=== PATIENT | female | born 2000 ===

== ENCOUNTER 2023-02-12 14:52 | Outpatient (CLI) | payer OTHER | END 2023-02-12 14:53 | disposition home or self-care (01) | LOC: LAB 14:52 | PROVIDERS: ATTEND Internal Medicine Hematology & Oncology | DX: E70.331 Hermansky-Pudlak syndrome (principal); D68.8 Other specified coagulation defects ==

== ENCOUNTER 2023-06-02 17:53 | Inpatient (IN) | payer OTHER ==
[~2023-06-02] VITALS: Ht 157.5 cm; Wt 70.8 kg
[2023-06-02 18:22] LABS: HEMATOCRIT 32.4 % (36.0-45.00); HEMOGLOBIN 10.4 g/dL (12.0-15.00); MEAN CELL VOLUME 84.5 fL (80.00-100.00); MEAN CORPUSCULAR HEMOGLOBIN 27.2 pg (27.00-32.0); MEAN CORPUSCULAR HGB CONC 32.2 g/dl (32.0-36.0); PLATELET COUNT 342 K/uL (150-450); RED BLOOD COUNT 3.83 M/uL (4.00-6.00); RED CELL DISTRIBUTION WIDTH 13.4 % (11.5-14.5)
[2023-06-02 18:37] LABS: PARTIAL THROMBOPLASTIN TIME 26.3 SECONDS (22.0-34.0)
[2023-06-02 20:08] LABS: ABG PH 7.352 (7.35-7.45); ABG PO2 20.8 mmHg (80-100); ABG pCO2 41.9 mmHg (35-45); BASE EXCESS -2.7 mmol/l; BICARBONATE 22.7 mmol/l (23-25)
[2023-06-02 23:18] LABS: HEMATOCRIT 31.3 % (36.0-45.00); HEMOGLOBIN 10.1 g/dL (12.0-15.00); MEAN CELL VOLUME 83.7 fL (80.00-100.00); MEAN CORPUSCULAR HEMOGLOBIN 27.1 pg (27.00-32.0); MEAN CORPUSCULAR HGB CONC 32.4 g/dl (32.0-36.0); PLATELET COUNT 313 K/uL (150-450); RED BLOOD COUNT 3.74 M/uL (4.00-6.00); RED CELL DISTRIBUTION WIDTH 13.8 % (11.5-14.5)
== END 2023-06-05 14:14 | disposition home or self-care (01) | DRG 807 ==
LOC: OB/GYN 17:53 → LDR 17:53 → OB/GYN 20:07
PROVIDERS: ADMIT Obstetrics & Gynecology; ATTEND Obstetrics & Gynecology
PROC: 10E0XZZ Delivery of Products of Conception, External Approach (ICD-10-PCS; principal; 2023-06-02)
PROC: 4A1HXCZ Monitoring of Products of Conception, Cardiac Rate, External Approach (ICD-10-PCS; 2023-06-02)
DX: O80 Encounter for full-term uncomplicated delivery (principal); Z37.0 Single live birth; Z3A.38 38 weeks gestation of pregnancy; Z20.822 Contact with and (suspected) exposure to COVID-19